=== PATIENT | female | born 1965 | race Caucasian/White ===

== ENCOUNTER 2018-12-15 13:44 | Outpatient (CLI) | payer BC ==
--- NOTE | 2018-12-16 15:33 | MMO ---
Bilateral MAMMO Bilat Screen [facility]. CLINICAL HISTORY: Patient is 53 years old and is seen for screening. The patient has the following family history of breast cancer: maternal grandmother, at age 50, and colon and sister. The patient has no personal history of cancer. The patient has a history of right Stereotatic Biopsy in 2010 - benign. VIEWS: The views performed were: bilateral craniocaudal with tomosynthesis and bilateral mediolateral oblique with tomosynthesis. FILMS COMPARED: The present examination has been compared to prior imaging studies performed at [facility] on 04/03/2011, 04/03/2012 and 04/05/2013, and at [facility] on 03/20/2004, 03/31/2004 and 07/02/2004. MAMMOGRAM FINDINGS: There are scattered fibroglandular densities. There are no suspicious masses, calcifications or areas of architectural distortion. Right biopsy clip. IMPRESSION: THERE IS NO MAMMOGRAPHIC EVIDENCE OF MALIGNANCY. A ROUTINE FOLLOW-UP MAMMOGRAM IN 1 YEAR IS RECOMMENDED. THE RESULTS OF THIS EXAM WERE SENT TO THE PATIENT. ACR BI-RADS Category 1 - Negative MAMMOGRAPHY NOTE: 1. A negative mammogram report should not delay a biopsy if a dominant of clinically suspicious mass is present. 2. Approximately 10% to 15% of breast cancers are not detected by mammography. 3. Adenosis and dense breasts may obscure an underlying neoplasm.
== END 2018-12-15 13:45 | disposition home or self-care (01) ==
LOC: BICMAMMO 13:44
PROVIDERS: ATTEND Internal Medicine
DX: Z12.31 Encounter for screening mammogram for malignant neoplasm of breast (principal); Z80.3 Family history of malignant neoplasm of breast
CPT/HCPCS: 77063; 77067

== ENCOUNTER 2022-09-07 17:32 | Inpatient (IN) | payer BC ==
[~2022-09-07 17:32] MED LIST: Iopamidol 370 76% 100 ML VIAL ONE
[2022-09-07 17:55] LABS: #Eosinphils 0.1 thou/uL (0.0-0.7); #Lymphocytes 2.6 thou/uL (1.20-3.40); #Monocytes 0.3 thou/uL (0.11-0.59); #Neutrophils 6.5 thou/uL (1.40-6.50); %Basophils 0.4 % (0.0-1.0); %Eosinophils 1.5 % (0.0-10.0); %Lymphocytes 26.6 % (21.0-51.0); %Monocytes 3.3 % (0.0-10.0); %Neutrophils 68.1 % (42.0-75.0); Hemoglobin 14.9 g/dL (12.0-16.0); Mean Corpuscular HGB CONC 32.8 g/dL (32.0-36.0); Mean Corpuscular Hemoglobin 31.8 pg (27.0-31.0); Mean Corpuscular Volume 96.9 fl (78.0-98.0); Mean Platelet Volume 6.7 fL (7.4-10.4); Platelet Count 313 10x3/uL (130-400); RBC Distribution Width 11.8 % (11.5-14.5); Red Blood Cell (RBC) Count 4.67 mill/uL (4.20-5.40); White Blood Cell (WBC) Count 9.6 10x3/uL (4.8-10.8)
[2022-09-07 18:16] LABS: ALT (SGPT) 19 U/L (8-55); AST (SGOT) 32 U/L (5-34); Albumin 4.3 g/dL (3.5-5.0); Alkaline Phosphatase 94 U/L (40-110); Anion Gap 15 mmol/L (10-20); BUN (Urea Nitrogen) 16 mg/dL (9.8-20.1); Bilirubin, Total 0.5 mg/dL (0.2-1.2); Calc. Creatinine Clearance 0 mL/min (70-130); Calcium 9.4 mg/dL (7.8-10.44); Carbon Dioxide 25 mmol/L (22-29); Chloride 103 mmol/L (98-107); Estimated GFR 103; Globulin 3.7 g/dL (2.4-3.5); Glucose 110 mg/dL (70-105); Potassium 3.6 mmol/L (3.5-5.1); Sodium 139 mmol/L (136-145)
[2022-09-07] MEDS ORDERED: Nitroglycerin 2% Ointment 1 INCH/1 GM Packet ONE (18:35)
[2022-09-07] MEDS ORDERED: Nitroglycerin 0.4 MG TAB 1 EACH ONE (18:35)
[2022-09-07 18:40] LABS: CKMB 20.1 ng/mL (0-6.6)
[2022-09-07] MEDS ORDERED: Ondansetron PF 4 MG/2 ML Vial ONE (19:05)
[2022-09-07] MEDS ORDERED: Morphine 4 MG/ML VIAL ONE (19:05)
[2022-09-07] MEDS ORDERED: Lidocaine 1% (PF) 30 ML VIAL ONE (19:48)
[2022-09-07] MEDS ORDERED: Heparin 10,000 UNITS/ 10 ML VIAL ONE ×2 (19:50→20:46)
[2022-09-07] MEDS ORDERED: Ondansetron PF 4 MG/2 ML Vial IVP PRN (20:11)
[2022-09-07] MEDS ORDERED: Midazolam HCl 2 mg/2 ml Vial ONE (20:16)
[2022-09-07] MEDS ORDERED: FENTANYL 50 MCG/ML 1 ML VIAL ONE ×2 (20:16→21:23)
[2022-09-07] MEDS ORDERED: Nitroglycerin 100MG/250ML BOT 250 ML ONE (20:16)
[2022-09-07] MEDS ORDERED: Adenosine 6 MG/2 ML VIAL ONE (20:16)
[2022-09-07] MEDS ORDERED: hydrALAZINE 20 MG/ML VIAL ONE (20:31)
[2022-09-07] MEDS ORDERED: Aggrastat 12.5 MG/250 ML 250 ML ONE (20:51)
[2022-09-07] MEDS ORDERED: Heparin 25,000 units/D5W 500 ML ONE (20:52)
[2022-09-07] MEDS ORDERED: Nitroglycerin 50 MG/250 ML BOT 250 ML ONE (20:53)
[2022-09-07] MEDS ORDERED: TICAGRELOR 90 MG TABLET ONE (21:07)
[2022-09-07] MEDS ORDERED: Zolpidem Tartrate 5 MG TAB PO PRN (21:25)
[2022-09-07] MEDS ORDERED: Mag-Al 1200 mg/1200 mg/30 ML UDCUP PO PRN (21:25)
[2022-09-07] MEDS ORDERED: Morphine 4 MG/ML VIAL SLOW IVP PRN (21:25)
[2022-09-07] MEDS ORDERED: cloNIDine 0.1 MG TAB PO PRN (21:25)
[2022-09-07] MEDS ORDERED: Milk Of Magnesia 30 ML UDCUP PO PRN (21:25)
[2022-09-07] MEDS ORDERED: Aggrastat 12.5 MG/250 ML 250 ML IVPB SCH (21:30)
[2022-09-07 22:26] VITALS: BMI 30.7
[2022-09-07] MEDS: Sodium Chloride 0.9% 1,000 ML IV SCH (22:35)
[2022-09-07] MEDS ORDERED: Nitroglycerin 0.4 MG TAB (25 Tab Bottle) SL PRN (23:22)
[2022-09-07] MEDS ORDERED: Ondansetron PF 4 MG/2 ML Vial IVP SCH (23:30)
[2022-09-07] MEDS ORDERED: Nitroglycerin 50 MG/250 ML BOT 250 ML IVPB SCH (23:45)
[2022-09-08 00:13] LABS: Troponin I 22.805 ng/mL (< 0.028)
[2022-09-08 01:58] LABS: Amphetamine Not Detected (NotDetected); Barbiturates Screen Not Detected (NotDetected); Benzodiazepine Screen Not Detected (NotDetected); Cocaine Metabolite Screen Not Detected (NotDetected); Methadone Not Detected (NotDetected); Methamphetamine Detected (NotDetected); Opiate Screen Detected (NotDetected); Oxycodone Screen Not Detected (NotDetected); Phencyclidine (PCP) Not Detected (NotDetected); THC/Cannabinoid Screen Not Detected (NotDetected); Tricyclic Screen Not Detected (NotDetected)
[2022-09-08 02:14] LABS: Critical Call Chem Troponin I RESULT DECREASING; Troponin I 20.825 ng/mL (< 0.028)
[2022-09-08 04:35] LABS: #Lymphocytes 1.5 thou/uL (1.20-3.40); #Monocytes 0.5 thou/uL (0.11-0.59); #Neutrophils 6.7 thou/uL (1.40-6.50); %Basophils 0.1 % (0.0-1.0); %Eosinophils 0.5 % (0.0-10.0); %Monocytes 5.5 % (0.0-10.0); Hemoglobin 12.5 g/dL (12.0-16.0); Mean Corpuscular HGB CONC 35.1 g/dL (32.0-36.0); Mean Corpuscular Hemoglobin 34.3 pg (27.0-31.0); Mean Corpuscular Volume 97.9 fl (78.0-98.0); Mean Platelet Volume 6.7 fL (7.4-10.4); Platelet Count 254 10x3/uL (130-400); RBC Distribution Width 11.6 % (11.5-14.5); Red Blood Cell (RBC) Count 3.63 mill/uL (4.20-5.40); White Blood Cell (WBC) Count 8.7 10x3/uL (4.8-10.8)
[2022-09-08 04:53] LABS: ALT (SGPT) 18 U/L (8-55); AST (SGOT) 72 U/L (5-34); Albumin 3.5 g/dL (3.5-5.0); Alkaline Phosphatase 73 U/L (40-110); Anion Gap 12 mmol/L (10-20); BUN (Urea Nitrogen) 11 mg/dL (9.8-20.1); Bilirubin, Total 0.5 mg/dL (0.2-1.2); Calc. Creatinine Clearance 132 mL/min (70-130); Calcium 8.5 mg/dL (7.8-10.44); Carbon Dioxide 22 mmol/L (22-29); Cardiac Risk 5.9 (Less than 4.5); Chloride 105 mmol/L (98-107); Cholesterol 255 mg/dl (< 200 Desired); Estimated GFR 106; Globulin 2.8 g/dL (2.4-3.5); Glucose 113 mg/dL (70-105); HDL Cholesterol 43 mg/dL (>60 Neg Risk); LDL Cholesterol, Calculated 163 mg/dL; Potassium 3.7 mmol/L (3.5-5.1); Protein, Total 6.3 g/dL (6.0-8.3); Sodium 135 mmol/L (136-145); Triglycerides 244 mg/dL (Less than 150)
[2022-09-08] MEDS: Sodium Chloride 0.9% 1,000 ML IV SCH ×2 (05:13→13:21)
[2022-09-08] MEDS: traMADol HCl 50 MG TAB PO PRN ×2 (05:17→20:42)
[2022-09-08] MEDS: Aspirin Chewable 81 MG TAB PO SCH (07:49)
[2022-09-08] MEDS: TICAGRELOR 90 MG TABLET PO SCH ×2 (07:49→20:42)
[2022-09-08] MEDS: Acetaminophen/Codeine 30-300mg Tablet PO PRN (07:50)
[2022-09-08] MEDS ORDERED: AMOXicillin 250 MG CAP PO SCH (12:00)
[2022-09-08] MEDS ORDERED: Atorvastatin Calcium 40 MG TAB PO SCH (21:00)
[2022-09-08] MEDS: AMOXicillin 250 MG CAP PO SCH (21:31)
[2022-09-09] MEDS: Aspirin Chewable 81 MG TAB PO SCH (09:14)
[2022-09-09] MEDS: AMOXicillin 250 MG CAP PO SCH (09:14)
[2022-09-09] MEDS: TICAGRELOR 90 MG TABLET PO SCH (09:14)
[2022-09-09] MEDS ORDERED: traMADol HCl 50 MG TAB PO PRN (09:16)
[2022-09-09] MEDS ORDERED: Acetaminophen 325 MG TAB PO PRN (09:23)
[2022-09-09] MEDS: Acetaminophen/Codeine 30-300mg Tablet PO PRN (10:54)
[2022-09-09 11:05] VITALS: BP 152/97
[2022-09-09 12:49] LABS: SARS-CoV-2 PCR NAA for Saliva Not Detected (NotDetected)
[2022-09-09 16:47] VITALS: TEMP 98.4
[2022-09-10] MEDS ORDERED: Lisinopril 2.5 MG TAB PO SCH (09:00)
== END 2022-09-09 18:55 | disposition home or self-care (01) | DRG 249 ==
LOC: ERS 17:32 → SDC/OP 20:14 → CCU 21:20 → IMCU/EMU 09-08 23:08
PROVIDERS: ADMIT Emergency Medicine; ATTEND Emergency Medicine
PROC: 02703DZ Dilation of Coronary Artery, One Artery with Intraluminal Device, Percutaneous Approach (ICD-10-PCS; principal; 2022-09-07)
PROC: 4A023N7 Measurement of Cardiac Sampling and Pressure, Left Heart, Percutaneous Approach (ICD-10-PCS; 2022-09-07)
PROC: B2151ZZ Fluoroscopy of Left Heart using Low Osmolar Contrast (ICD-10-PCS; 2022-09-07)
PROC: B2111ZZ Fluoroscopy of Multiple Coronary Arteries using Low Osmolar Contrast (ICD-10-PCS; 2022-09-07)
DX: I21.09 ST elevation (STEMI) myocardial infarction involving other coronary artery of anterior wall (principal); I25.10 Atherosclerotic heart disease of native coronary artery without angina pectoris; Z20.822 Contact with and (suspected) exposure to COVID-19; E78.5 Hyperlipidemia, unspecified; R94.31 Abnormal electrocardiogram [ECG] [EKG]; M45.9 Ankylosing spondylitis of unspecified sites in spine; F17.210 Nicotine dependence, cigarettes, uncomplicated; Z79.899 Other long term (current) drug therapy
CPT/HCPCS: 36415; 71045; 80053; 80061; 80306; 82553; 83036; 83880; 84484; 85025; 85347; 92941; 93005; 93306; 93458; 93798; 96374; 96375; 99152; 99153; C1769; J0153; J0360; J1644; J2001; J2250; J2270; J2405; J3010; J3246; J7050; Q9967; U0003; U0005

== ENCOUNTER 2022-11-07 08:58 | Outpatient (CLI) | payer BC | END 2022-11-07 08:59 | disposition home or self-care (01) | LOC: LABBT 08:58 | PROVIDERS: ATTEND Thoracic Surgery (Cardiothoracic Vascular Surgery) | DX: Z01.812 Encounter for preprocedural laboratory examination (principal); I25.110 Atherosclerotic heart disease of native coronary artery with unstable angina pectoris | CPT/HCPCS: 80048; 85027; 86850; 86900; 86901 ==

== ENCOUNTER 2022-11-07 09:00 | Inpatient (IN) | payer BC ==
[2022-11-07 10:08] LABS: Hemoglobin 12.7 g/dL (12.0-15.5); Mean Corpuscular HGB CONC 33.5 g/dL (32.0-36.0); Mean Corpuscular Hemoglobin 31.5 pg (27.0-33.0); Mean Platelet Volume 9.4 fl (7.4-10.4); Platelet Count 259 10x3/uL (150-450); RBC Distribution Width 11.9 % (11.5-14.5); Red Blood Cell (RBC) Count 4.03 10x6/uL (3.90-5.03); White Blood Cell (WBC) Count 5.3 10x3/uL (3.5-10.5)
[2022-11-07 10:27] LABS: Anion Gap 12 mmol/L (10-20); BUN (Urea Nitrogen) 18 mg/dL (9.8-20.1); Calc. Creatinine Clearance 0 mL/min (70-130); Calcium 9.8 mg/dL (7.8-10.44); Carbon Dioxide 27 mmol/L (22-29); Chloride 105 mmol/L (98-107); Estimated GFR 101; Glucose 100 mg/dL (70-105); Potassium 3.9 mmol/L (3.5-5.1); Sodium 140 mmol/L (136-145)
[2022-11-08] MEDS ORDERED: Dexamethasone 4 mg/ml Vial ONE (06:18)
[2022-11-08] MEDS ORDERED: Albumin 5% 0 ML ONE (06:19)
[2022-11-08] MEDS ORDERED: Bupivacaine HCl 0.5%/Epinephrine 1:200,000/PF 30 ml Vial ONE (06:19)
[2022-11-08] MEDS ORDERED: Fentanyl 250 MCG/5 ML VIAL ONE (06:45)
[2022-11-08] MEDS ORDERED: Midazolam HCl 5 mg/5 ml Vial ONE (06:45)
[2022-11-08] MEDS ORDERED: Dexmedetomidine 200 MCG/2 ML VIAL ONE (06:46)
[2022-11-08] MEDS ORDERED: Lidocaine 1% MPF 2 ML VIAL ONE (07:00)
[2022-11-08] MEDS ORDERED: Metoprolol Tartrate 5 MG/5 ML VIAL ONE (07:00)
[2022-11-08] MEDS ORDERED: Heparin 10,000 UNITS/1 ML VIAL 30,000 UNITS in Sodium Chloride 0.9% 1,000 ML FS SCH (07:00)
[2022-11-08 07:03] LABS: SARS-CoV-2 NAA Rapid Test Not Detected (NotDetected)
[2022-11-08] MEDS ORDERED: Sodium Chloride 0.9% 100 ML ONE (07:16)
[2022-11-08] MEDS ORDERED: CEFAZOLIN 2 GM VIAL ONE (07:16)
[2022-11-08] MEDS ORDERED: Potassium Chloride 60 MEQ/30 ML VIAL ONE (07:50)
[2022-11-08] MEDS ORDERED: Ondansetron PF 4 MG/2 ML Vial ONE (07:50)
[2022-11-08] MEDS ORDERED: PROPOFOL 200 MG/20 ML VIAL ONE (07:50)
[2022-11-08] MEDS ORDERED: Lidocaine 1% PF 5 ML VIAL ONE (07:50)
[2022-11-08] MEDS ORDERED: Vecuronium 10 MG VIAL ONE (07:50)
[2022-11-08] MEDS ORDERED: Rocuronium Bromide 10 MG/ML (10ML VIAL) ONE (07:50)
[2022-11-08] MEDS ORDERED: Calcium Chloride 1 GM/10 ML Abboject SYRINGE ONE (07:50)
[2022-11-08] MEDS ORDERED: NEOSTIGMINE 3 MG/3 ML SYR 3 MG/3 ML SYRINGE ONE (07:50)
[2022-11-08] MEDS ORDERED: Vancomycin 1 GM VIAL ONE (07:50)
[2022-11-08] MEDS ORDERED: Lidocaine 2% PF 100 mg/5 ml Syringe ONE (07:50)
[2022-11-08] MEDS ORDERED: Aminocaproic Acid 5 GM/20 ML VIAL ONE (07:50)
[2022-11-08] MEDS ORDERED: Nitroglycerin 50 MG/250 ML BOT ONE (07:50)
[2022-11-08] MEDS ORDERED: Papaverine 60 MG/2 ML VIAL ONE (07:50)
[2022-11-08] MEDS ORDERED: Dexamethasone 20 MG/5 ML VIAL ONE (07:50)
[2022-11-08] MEDS ORDERED: Heparin 30,000 units/30 ml VIAL ONE (07:50)
[2022-11-08] MEDS ORDERED: Sodium Bicarb 50 MEQ/50 ML Abboject 8.4% SYRINGE ONE (07:50)
[2022-11-08] MEDS ORDERED: Heparin 5,000 UNITS/ML VIAL ONE (07:50)
[2022-11-08] MEDS ORDERED: Mannitol 12.5 GM/50 ML ONE (07:50)
[2022-11-08] MEDS ORDERED: Glycopyrrolate 0.2 MG/ML 5 ML SYRINGE ONE (07:50)
[2022-11-08] MEDS ORDERED: Protamine Sulfate 250 MG/25 ML VIAL ONE (07:50)
[2022-11-08] MEDS ORDERED: Cardioplegic Soln 1,000 ML BAG ONE (07:50)
[2022-11-08] MEDS ORDERED: Thrombin 5000 UNITS/5 ML VIAL ONE (07:50)
[2022-11-08] MEDS ORDERED: Magnesium 5 GM/10 ML Abboject SYRINGE ONE (07:50)
[2022-11-08] MEDS ORDERED: PHENYLEPHRINE-NS 100 MCG/ML 10 ML SYRINGE ONE (09:03)
[2022-11-08] MEDS ORDERED: Metoprolol Tartrate 5 MG/5 ML VIAL IVP SCH (09:30)
[2022-11-08] MEDS ORDERED: Guaifenesin DM 100-10/5 ML UDCUP PO PRN (09:45)
[2022-11-08] MEDS ORDERED: Nitroglycerin 50 MG/250 ML BOT 250 ML IVPB PRN (09:45)
[2022-11-08] MEDS ORDERED: hydrALAZINE 20 MG/ML VIAL SLOW IVP PRN (09:45)
[2022-11-08] MEDS ORDERED: Morphine 2 MG/ML VIAL SLOW IVP PRN (09:45)
[2022-11-08] MEDS ORDERED: Ondansetron PF 4 MG/2 ML Vial IVP PRN (09:45)
[2022-11-08] MEDS ORDERED: Bisacodyl 5 MG TAB PO PRN (09:45)
[2022-11-08] MEDS ORDERED: Ipratropium/Albuterol 3 ML NEB NEB PRN (09:45)
[2022-11-08] MEDS ORDERED: Mag-Al 1200 mg/1200 mg/30 ML UDCUP PO PRN (09:45)
[2022-11-08] MEDS ORDERED: Hetastarch 6% 500 ML 500 ML IVPB PRN (09:45)
[2022-11-08] MEDS ORDERED: NOREPINEPHRINE 8 MG/250 ML-D5W 250 ML IVPB PRN (09:45)
[2022-11-08] MEDS ORDERED: Fentanyl 100 MCG/2 ML VIAL SLOW IVP PRN (09:45)
[2022-11-08] MEDS ORDERED: niCARdipine 25 MG in Sodium Chloride 0.9% 250 ML 250 ML IVPB PRN (09:45)
[2022-11-08] MEDS ORDERED: Bisacodyl 10 MG SUPP PR PRN (09:45)
[2022-11-08] MEDS ORDERED: HUMULIN R 100 UNITS in Sodium Chloride 0.9% 100 ML IVPB SCH (10:00)
[2022-11-08] MEDS ORDERED: Dextrose 50% Abboject 50 ML SYRINGE SLOW IVP PRN (10:00)
[2022-11-08] MEDS ORDERED: Insulin Regular 300 UNITS/3 ML VIAL SC PRN ×2 (10:00→17:45)
[2022-11-08] MEDS ORDERED: Dextrose 5% in Water 1,000 ML IV PRN (10:00)
[2022-11-08] MEDS: Potassium Chloride 20 MEQ in Lactated Ringer's 1,000 ML IV SCH (11:05)
[2022-11-08] MEDS: Ketorolac Tromethamine 30 MG/ML VIAL IVP SCH ×3 (11:21→23:52)
[2022-11-08 11:24] LABS: #Eosinphils 0.1 thou/uL (0.0-0.7); #Lymphocytes 2.4 thou/uL (1.20-3.40); #Monocytes 0.3 thou/uL (0.11-0.59); #Neutrophils 11.3 thou/uL (1.40-6.50); %Basophils 0.1 % (0.0-1.0); %Eosinophils 0.6 % (0.0-10.0); %Lymphocytes 17.1 % (21.0-51.0); %Monocytes 2.2 % (0.0-10.0); %Neutrophils 80.1 % (42.0-75.0); Mean Corpuscular HGB CONC 33.7 g/dL (32.0-36.0); Mean Corpuscular Hemoglobin 32.5 pg (27.0-31.0); Mean Corpuscular Volume 96.5 fl (78.0-98.0); Mean Platelet Volume 6.8 fL (7.4-10.4); Platelet Count 193 10x3/uL (130-400); RBC Distribution Width 11.3 % (11.5-14.5); Red Blood Cell (RBC) Count 3.07 mill/uL (4.20-5.40); White Blood Cell (WBC) Count 14.1 10x3/uL (4.8-10.8)
[2022-11-08] MEDS: Fentanyl 100 MCG/2 ML VIAL SLOW IVP PRN ×3 (11:29→20:45)
[2022-11-08 11:37] LABS: INR-International Normal Ratio 1.2; PTT 26.4 sec (22.9-36.1); Prothrombin Time 15.7 sec (12.0-14.7)
[2022-11-08 11:42] LABS: Anion Gap 10 mmol/L (10-20); BUN (Urea Nitrogen) 17 mg/dL (9.8-20.1); Calc. Creatinine Clearance 124 mL/min (70-130); Calcium 7.5 mg/dL (7.8-10.44); Carbon Dioxide 20 mmol/L (22-29); Chloride 112 mmol/L (98-107); Estimated GFR 105; Glucose 207 mg/dL (70-105); Potassium 3.7 mmol/L (3.5-5.1); Sodium 138 mmol/L (136-145)
[2022-11-08] MEDS: Potassium Chloride 20 MEQ/100 ML PREMIX BAG IVPB PRN (12:16)
[2022-11-08] MEDS: CEFAZOLIN 2 GM in Sodium Chloride 0.9% 100 ML IVPB SCH ×2 (12:16→20:52)
[2022-11-08] MEDS: traMADol HCl 50 MG TAB PO PRN ×2 (13:41→23:54)
[2022-11-08 15:56] LABS: Hemoglobin 9.2 g/dL (12.0-16.0)
[2022-11-08] MEDS: Acetaminophen 325 MG TAB PO PRN (16:04)
[2022-11-08 16:09] LABS: Potassium 4.3 mmol/L (3.5-5.1)
[2022-11-08] MEDS: Atorvastatin Calcium 20 MG TAB PO SCH (20:48)
[2022-11-08] MEDS: Famotidine/PF 20 mg/2ml Vial SLOW IVP SCH (20:48)
[2022-11-09] MEDS: Fentanyl 100 MCG/2 ML VIAL SLOW IVP PRN (01:28)
[2022-11-09 04:43] LABS: #Lymphocytes 2.1 thou/uL (1.20-3.40); #Monocytes 0.8 thou/uL (0.11-0.59); #Neutrophils 7.7 thou/uL (1.40-6.50); %Basophils 0.2 % (0.0-1.0); %Eosinophils 0.1 % (0.0-10.0); %Lymphocytes 19.8 % (21.0-51.0); %Monocytes 7.3 % (0.0-10.0); %Neutrophils 72.7 % (42.0-75.0); Hemoglobin 7.3 g/dL (12.0-16.0); Mean Corpuscular HGB CONC 34.1 g/dL (32.0-36.0); Mean Corpuscular Hemoglobin 32.6 pg (27.0-31.0); Mean Corpuscular Volume 95.4 fl (78.0-98.0); Mean Platelet Volume 7.1 fL (7.4-10.4); Platelet Count 157 10x3/uL (130-400); RBC Distribution Width 11.5 % (11.5-14.5); Red Blood Cell (RBC) Count 2.25 mill/uL (4.20-5.40); White Blood Cell (WBC) Count 10.6 10x3/uL (4.8-10.8)
[2022-11-09 04:59] LABS: Anion Gap 8 mmol/L (10-20); BUN (Urea Nitrogen) 13 mg/dL (9.8-20.1); Calc. Creatinine Clearance 148 mL/min (70-130); Calcium 7.9 mg/dL (7.8-10.44); Carbon Dioxide 23 mmol/L (22-29); Chloride 108 mmol/L (98-107); Estimated GFR 106; Glucose 113 mg/dL (70-105); Potassium 4.1 mmol/L (3.5-5.1); Sodium 135 mmol/L (136-145)
[2022-11-09] MEDS: CEFAZOLIN 2 GM in Sodium Chloride 0.9% 100 ML IVPB SCH (05:28)
[2022-11-09] MEDS: Ketorolac Tromethamine 30 MG/ML VIAL IVP SCH ×3 (05:29→17:11)
[2022-11-09] MEDS: Potassium Chloride 20 MEQ in Lactated Ringer's 1,000 ML IV SCH (06:14)
[2022-11-09] MEDS: Famotidine/PF 20 mg/2ml Vial SLOW IVP SCH (08:31)
[2022-11-09] MEDS: Aspirin 325 MG TAB PO SCH (08:31)
[2022-11-09] MEDS: Magnesium 2 GM/50 ML(in water) 2 GM in Premix Bag 1 BAG IVPB SCH (08:31)
[2022-11-09] MEDS: traMADol HCl 50 MG TAB PO PRN ×3 (08:32→19:55)
[2022-11-09] MEDS ORDERED: FLU VACC QS2022-23(6MOS UP)/PF 60 MCG/0.5 ML SYRINGE IM ONE (09:00)
[2022-11-09] MEDS ORDERED: Insulin Glargine 30 UNITS/0.3 ML VIAL SC PRN (09:56)
[2022-11-09] MEDS: Atorvastatin Calcium 20 MG TAB PO SCH (19:55)
[2022-11-10] MEDS: Ketorolac Tromethamine 30 MG/ML VIAL IVP SCH ×4 (00:09→18:04)
[2022-11-10 04:40] VITALS: BMI 30.8
[2022-11-10 04:50] LABS: #Lymphocytes 2.3 thou/uL (1.20-3.40); #Monocytes 0.9 thou/uL (0.11-0.59); #Neutrophils 7.9 thou/uL (1.40-6.50); %Basophils 0.3 % (0.0-1.0); %Eosinophils 0.2 % (0.0-10.0); %Lymphocytes 20.8 % (21.0-51.0); %Monocytes 7.9 % (0.0-10.0); %Neutrophils 70.9 % (42.0-75.0); Hemoglobin 8.9 g/dL (12.0-16.0); Mean Corpuscular HGB CONC 34.5 g/dL (32.0-36.0); Mean Corpuscular Hemoglobin 32.5 pg (27.0-31.0); Mean Corpuscular Volume 94.3 fl (78.0-98.0); Mean Platelet Volume 7.5 fL (7.4-10.4); Platelet Count 136 10x3/uL (130-400); RBC Distribution Width 12.5 % (11.5-14.5); Red Blood Cell (RBC) Count 2.74 mill/uL (4.20-5.40); White Blood Cell (WBC) Count 11.2 10x3/uL (4.8-10.8)
[2022-11-10 05:08] LABS: Anion Gap 10 mmol/L (10-20); BUN (Urea Nitrogen) 15 mg/dL (9.8-20.1); Calc. Creatinine Clearance 131 mL/min (70-130); Calcium 8.1 mg/dL (7.8-10.44); Carbon Dioxide 24 mmol/L (22-29); Chloride 106 mmol/L (98-107); Estimated GFR 105; Glucose 111 mg/dL (70-105); Potassium 3.8 mmol/L (3.5-5.1); Sodium 136 mmol/L (136-145)
[2022-11-10] MEDS: Potassium Chloride 20 MEQ/100 ML PREMIX BAG IVPB PRN (05:50)
[2022-11-10] MEDS: traMADol HCl 50 MG TAB PO PRN ×2 (07:46→15:10)
[2022-11-10] MEDS: Aspirin 325 MG TAB PO SCH (08:46)
[2022-11-10] MEDS: Magnesium 2 GM/50 ML(in water) 2 GM in Premix Bag 1 BAG IVPB SCH (08:47)
[2022-11-10] MEDS ORDERED: Nitroglycerin 0.4 MG TAB (25 Tab Bottle) SL PRN (08:48)
[2022-11-10] MEDS ORDERED: Bisacodyl 10 MG SUPP PR PRN (08:48)
[2022-11-10] MEDS ORDERED: Milk Of Magnesia 30 ML UDCUP PO PRN (08:48)
[2022-11-10] MEDS ORDERED: Guaifenesin DM 100-10/5 ML UDCUP PO PRN (08:48)
[2022-11-10] MEDS ORDERED: Bisacodyl 5 MG TAB PO PRN (08:48)
[2022-11-10] MEDS ORDERED: Zolpidem Tartrate 5 MG TAB PO PRN (08:48)
[2022-11-10] MEDS ORDERED: Mag-Al 1200 mg/1200 mg/30 ML UDCUP PO PRN (08:48)
[2022-11-10] MEDS ORDERED: diphenhydrAMINE 25 MG CAP PO PRN (08:48)
[2022-11-10] MEDS ORDERED: Mineral Oil ENEMA PR PRN (08:48)
[2022-11-10] MEDS ORDERED: Aspirin 325 mg Enteric Coated Tablet PO SCH (09:00)
[2022-11-10] MEDS: Acetaminophen 325 MG TAB PO PRN (18:09)
[2022-11-10] MEDS: Atorvastatin Calcium 40 MG TAB PO SCH (21:13)
[2022-11-11] MEDS: Ketorolac Tromethamine 30 MG/ML VIAL IVP SCH ×3 (00:26→15:21)
[2022-11-11] MEDS: traMADol HCl 50 MG TAB PO PRN ×2 (00:43→19:52)
[2022-11-11] MEDS ORDERED: Aspirin 81 mg Enteric Coated Tablet PO SCH (07:15)
[2022-11-11] MEDS: Clopidogrel Bisulfate 75 MG TAB PO SCH (08:51)
[2022-11-11] MEDS: Acetaminophen 325 MG TAB PO PRN (15:22)
[2022-11-11] MEDS: Atorvastatin Calcium 40 MG TAB PO SCH (19:52)
[2022-11-12 03:30] VITALS: TEMP 97.9
[2022-11-12] MEDS: Clopidogrel Bisulfate 75 MG TAB PO SCH (09:17)
[2022-11-12] MEDS: traMADol HCl 50 MG TAB PO PRN (09:19)
[2022-11-12 10:16] VITALS: BP 149/85
== END 2022-11-12 11:25 | disposition home or self-care (01) | DRG 236 ==
LOC: SURG A 11-08 05:27 → CCU 11-08 09:53 → 2NO 11-10 19:37
PROVIDERS: ADMIT Thoracic Surgery (Cardiothoracic Vascular Surgery); ATTEND Thoracic Surgery (Cardiothoracic Vascular Surgery)
PROC: 021209W Bypass Coronary Artery, Three Arteries from Aorta with Autologous Venous Tissue, Open Approach (ICD-10-PCS; principal; 2022-11-08)
PROC: 06BQ4ZZ Excision of Left Saphenous Vein, Percutaneous Endoscopic Approach (ICD-10-PCS; 2022-11-08)
PROC: 5A1221Z Performance of Cardiac Output, Continuous (ICD-10-PCS; 2022-11-08)
PROC: 02L70CK Occlusion of Left Atrial Appendage with Extraluminal Device, Open Approach (ICD-10-PCS; 2022-11-08)
PROC: 30233J1 Transfusion of Nonautologous Serum Albumin into Peripheral Vein, Percutaneous Approach (ICD-10-PCS; 2022-11-08)
PROC: 02H633Z Insertion of Infusion Device into Right Atrium, Percutaneous Approach (ICD-10-PCS; 2022-11-08)
PROC: 30233N1 Transfusion of Nonautologous Red Blood Cells into Peripheral Vein, Percutaneous Approach (ICD-10-PCS; 2022-11-09)
DX: I25.10 Atherosclerotic heart disease of native coronary artery without angina pectoris (principal); I10 Essential (primary) hypertension; E78.5 Hyperlipidemia, unspecified; Z98.890 Other specified postprocedural states; Z95.5 Presence of coronary angioplasty implant and graft; Z79.899 Other long term (current) drug therapy; Z79.82 Long term (current) use of aspirin; I25.2 Old myocardial infarction; Z20.822 Contact with and (suspected) exposure to COVID-19
CPT/HCPCS: 36416; 36430; 71045; 80048; 85025; 85027; 85610; 85730; 86850; 86900; 86901; 93005; 93010; 93798; C1751; J1100; J1642; J1644; J1815; J1885; J2001; J2150; J2250; J2405; J2440; J2704; J2720; J3010; J3370; J3475; J3480; J3490; J7120; P9016; P9045; S0017; S0028; U0002

== ENCOUNTER 2022-12-18 20:16 | Observation (INO) | payer BC ==
[2022-12-18] MEDS ORDERED: Aspirin Chewable 81 MG TAB ONE (20:57)
[2022-12-18 21:17] LABS: #Eosinphils 0.3 thou/uL (0.0-0.7); #Lymphocytes 3.2 thou/uL (1.20-3.40); #Monocytes 0.3 thou/uL (0.11-0.59); #Neutrophils 3.6 thou/uL (1.40-6.50); %Basophils 0.2 % (0.0-1.0); %Eosinophils 3.5 % (0.0-10.0); %Lymphocytes 43.2 % (21.0-51.0); %Monocytes 4.1 % (0.0-10.0); Hemoglobin 12.2 g/dL (12.0-16.0); Mean Corpuscular HGB CONC 33.9 g/dL (32.0-36.0); Mean Corpuscular Hemoglobin 32.1 pg (27.0-31.0); Mean Corpuscular Volume 94.8 fl (78.0-98.0); Mean Platelet Volume 6.7 fL (7.4-10.4); Platelet Count 311 10x3/uL (130-400); RBC Distribution Width 12.7 % (11.5-14.5); Red Blood Cell (RBC) Count 3.81 mill/uL (4.20-5.40); White Blood Cell (WBC) Count 7.3 10x3/uL (4.8-10.8)
[2022-12-18] MEDS ORDERED: Nitroglycerin 2% Ointment 1 INCH/1 GM Packet ONE (21:23)
[2022-12-18 21:40] LABS: ALT (SGPT) 15 U/L (8-55); AST (SGOT) 25 U/L (5-34); Albumin 4.5 g/dL (3.5-5.0); Alkaline Phosphatase 121 U/L (40-110); Anion Gap 17 mmol/L (10-20); BUN (Urea Nitrogen) 18 mg/dL (9.8-20.1); Bilirubin, Total 0.2 mg/dL (0.2-1.2); Calc. Creatinine Clearance 0 mL/min (70-130); Calcium 9.9 mg/dL (7.8-10.44); Carbon Dioxide 22 mmol/L (22-29); Chloride 106 mmol/L (98-107); Estimated GFR 95; Globulin 4.2 g/dL (2.4-3.5); Glucose 99 mg/dL (70-105); Lipase 53 U/L (8-78); Magnesium 2.1 mg/dL (1.6-2.6); Potassium 4.2 mmol/L (3.5-5.1); Protein, Total 8.7 g/dL (6.0-8.3); Sodium 141 mmol/L (136-145)
[2022-12-19] MEDS ORDERED: Ondansetron ODT 4 MG TAB PO PRN
[2022-12-19] MEDS ORDERED: Ondansetron PF 4 MG/2 ML Vial IVP PRN
[2022-12-19] MEDS ORDERED: Acetaminophen 325 MG TAB PO PRN
[2022-12-19] MEDS ORDERED: traMADol HCl 50 MG TAB PO PRN
[2022-12-19] MEDS ORDERED: Calcium Carbonate 500 MG ChewTAB PO PRN
[2022-12-19] MEDS ORDERED: CeleCOXIB 100 MG CAP PO SCH ×2 (00:15→09:00)
[2022-12-19] MEDS ORDERED: traMADol HCl 50 MG TAB PO SCH (00:15)
[2022-12-19] MEDS ORDERED: Atorvastatin Calcium 40 MG TAB PO SCH ×2 (00:15→21:00)
[2022-12-19 02:02] VITALS: BMI 29.2
[2022-12-19 02:10] LABS: Troponin I Less than 0.010 ng/mL (< 0.028)
[2022-12-19 05:22] LABS: #Basophils 0.1 thou/uL (0.0-0.2); #Eosinphils 0.2 thou/uL (0.0-0.7); #Lymphocytes 2.5 thou/uL (1.20-3.40); #Monocytes 0.4 thou/uL (0.11-0.59); %Basophils 0.9 % (0.0-1.0); %Eosinophils 4.1 % (0.0-10.0); %Lymphocytes 40.3 % (21.0-51.0); %Monocytes 5.7 % (0.0-10.0); Hemoglobin 10.5 g/dL (12.0-16.0); Mean Corpuscular HGB CONC 33.8 g/dL (32.0-36.0); Mean Corpuscular Volume 94.5 fl (78.0-98.0); Mean Platelet Volume 6.8 fL (7.4-10.4); Platelet Count 259 10x3/uL (130-400); RBC Distribution Width 12.6 % (11.5-14.5); Red Blood Cell (RBC) Count 3.29 mill/uL (4.20-5.40); White Blood Cell (WBC) Count 6.1 10x3/uL (4.8-10.8)
[2022-12-19 05:48] LABS: Anion Gap 12 mmol/L (10-20); BUN (Urea Nitrogen) 16 mg/dL (9.8-20.1); Calc. Creatinine Clearance 111 mL/min (70-130); Calcium 9.2 mg/dL (7.8-10.44); Carbon Dioxide 26 mmol/L (22-29); Chloride 105 mmol/L (98-107); Estimated GFR 103; Glucose 98 mg/dL (70-105); Potassium 3.8 mmol/L (3.5-5.1); Sodium 139 mmol/L (136-145)
[2022-12-19 05:51] LABS: Troponin I Less than 0.010 ng/mL (< 0.028)
[2022-12-19] MEDS ORDERED: Clopidogrel Bisulfate 75 MG TAB PO SCH (09:00)
[2022-12-19] MEDS ORDERED: Aspirin Chewable 81 MG TAB PO SCH (09:00)
[2022-12-19 12:15] VITALS: BP 128/78; TEMP 98
[2022-12-22] MEDS ORDERED: FLU VACC QS2022-23(6MOS UP)/PF 60 MCG/0.5 ML SYRINGE IM ONE (09:00)
== END 2022-12-19 16:39 | disposition home or self-care (01) ==
LOC: ERS 20:16 → 2SW 23:38
PROVIDERS: ADMIT Internal Medicine; ATTEND Nurse Practitioner Family
DX: R07.9 Chest pain, unspecified (principal); R00.2 Palpitations; I25.10 Atherosclerotic heart disease of native coronary artery without angina pectoris; E78.5 Hyperlipidemia, unspecified; M45.9 Ankylosing spondylitis of unspecified sites in spine; I10 Essential (primary) hypertension; M19.90 Unspecified osteoarthritis, unspecified site; I25.2 Old myocardial infarction; Z87.891 Personal history of nicotine dependence; Z79.02 Long term (current) use of antithrombotics/antiplatelets; Z79.1 Long term (current) use of non-steroidal anti-inflammatories (NSAID); Z79.82 Long term (current) use of aspirin; Z79.899 Other long term (current) drug therapy; Z95.1 Presence of aortocoronary bypass graft; Z95.5 Presence of coronary angioplasty implant and graft; Z20.822 Contact with and (suspected) exposure to COVID-19
CPT/HCPCS: 36415; 71045; 80048; 80053; 83690; 83735; 83880; 84484; 85025; 93005; G0378; U0003; U0005

== ENCOUNTER 2023-01-22 12:19 | Outpatient (CLI) | payer BC | END 2023-01-22 12:20 | disposition home or self-care (01) | LOC: BICMAMMO 12:19 | PROVIDERS: ATTEND Nurse Practitioner Family | DX: Z12.31 Encounter for screening mammogram for malignant neoplasm of breast (principal) | CPT/HCPCS: 77063; 77067 ==